=== PATIENT | male | born 1980 | race Caucasian/White ===

== ENCOUNTER → 2016-11-22 | Outpatient (CLI) | payer OTHER | LOC: KOH-I 13:05 | DX: M54.9 Dorsalgia, unspecified (principal) | CPT/HCPCS: 72110 ==

== ENCOUNTER → 2016-12-13 | Outpatient (CLI) | payer OTHER | LOC: EMI 17:49 | DX: M54.89 Other dorsalgia (principal); M51.36 Other intervertebral disc degeneration, lumbar region; M51.37 Other intervertebral disc degeneration, lumbosacral region | CPT/HCPCS: 72148 ==

== ENCOUNTER 2020-10-11 09:18 | Emergency (ER) | payer OTHER ==
[2020-10-11 11:44] LABS: RED BLOOD COUNT 4.87 M/UL (4.20-5.50); WHITE BLOOD COUNT 6.2 K/UL (4.5-11.0)
[2020-10-11 12:05] LABS: BUN/CREATININE RATIO 13 (0-10)
== END 2020-10-11 14:22 | disposition home or self-care (01) ==
LOC: ER1 09:18
PROVIDERS: Emergency Medicine
DX: K40.90 Unilateral inguinal hernia, without obstruction or gangrene, not specified as recurrent (principal)
CPT/HCPCS: 71045; 80053; 81001; 83605; 85025; 93005; 99284; Q9967

== ENCOUNTER 2021-05-31 10:44 | Emergency (ER) | payer OTHER ==
[2021-05-31 13:04] LABS: HEMOGLOBIN 15.4 gm/dl (14.0-17.5); RED BLOOD COUNT 5.28 M/UL (4.20-5.50); WHITE BLOOD COUNT 7.2 K/UL (4.5-11.0)
[2021-05-31 13:32] LABS: BUN/CREATININE RATIO 9 (0-10)
== END 2021-05-31 17:25 | disposition home or self-care (01) ==
LOC: ER1 10:44
PROVIDERS: Physician Assistant
DX: I10 Essential (primary) hypertension (principal); R42 Dizziness and giddiness; F17.200 Nicotine dependence, unspecified, uncomplicated
CPT/HCPCS: 70450; 71045; 80053; 82550; 82553; 83874; 84484; 85025; 99284